=== PATIENT | male | born 1955 | race African-American/Black ===

== ENCOUNTER 2020-12-23 15:48 | Emergency (ER) | payer SELFPAY ==
[2020-12-23] MEDS ORDERED: NA CHLORIDE 0.9% 500 ML ONE (17:05)
[2020-12-23] MEDS ORDERED: FENTANYL CITR 100 MCG/2 ML ONE (17:05)
[2020-12-23 17:13] LABS: Absolute Lymphocytes (CBC) 1.3 K/uL (0.7-4.9); Basophils % 0.3 % (0-1.3); Hematocrit 39.7 % (39.6-49.0); Lymphocytes % 7.4 % (15.3-44.8); MPV 9.3 fL (7.6-11.3); RBC Red Blood Cell Count 4.04 M/uL (4.33-5.43)
[2020-12-23 17:26] LABS: Potassium 3.7 mmol/L (3.5-5.1)
--- NOTE | 2020-12-23 18:03 | RAD REPORT ---
EXAM DESCRIPTION: CT - Head C Spine Cap Wo Con - 12/23/2020 5:04 pm CLINICAL HISTORY: Trauma, head and neck injury. Chest, abdomen and pelvis pain. r/o trauma from fall COMPARISON: Shoulder Left 2 View dated 12/23/2020 TECHNIQUE: CT head without contrast. CT cervical spine without contrast with coronal and sagittal reformatted images. CT chest, abdomen and pelvis without contrast with coronal and sagittal reformatted images of the spi ne. All CT scans are performed using dose optimization technique as appropriate and may include automated exposure control or mA/KV adjustment according to patient size. FINDINGS: CT HEAD WITHOUT CONTRAST: No intracranial hemorrhage, hydrocephalus or extra-axial fluid collection. No areas of brain edema o r midline shift. The paranasal sinuses and mastoids are clear. The calvarium is intact. CT CERVICAL SPINE WITHOUT CONTRAST: There is a nondisplaced fracture involving the anterior inferior aspect of the C2 vertebral body. Sma ll bony fragment noted posterior to the left C2 lateral mass may also be avulsion fracture. Mildly di splaced fracture of the left C6 lateral mass is noted. CT CHEST, ABDOMEN, PELVIS WITHOUT CONTRAST: NOTE: Lack of contrast is a significant limitation in the assessment of trauma related findings. Spec ifically, solid organ, vascular and bowel evaluation is significantly limited. There is a moderately displaced fracture of the sternum at the level of the manubrium. Associated mil d volume of the anterior mediastinal hematoma. The left first, second, third ribs posteriorly. The right first, second, third and fourth ribs near t he junction with the spine appears fractured. The right third, fourth, fifth, sixth, seventh ribs aminata ear fractured posteriorly. Thoracic spine right transverse process fractures are seen involving T1, T2, T3, T4, T5, T6, T7, T8 a nd T9. Burst fracture is also noted involving the T4 and T5 vertebral bodies. Paraspinal hematoma is present at the level of the T4 and T5 burst fractures. There is mild probable canal compromise present at these levels. High density fluid is seen in the paraspinal posterior mediastinum most likely representing hemomedia stinum. There is fluid also noted in the anterior to the heart which is of high density and crescenti c measuring up to 25 mm likely hemopericardium. Assessment of the aorta and great vessels is limited due to lack of contrast. Grossly, the aorta appe ars of normal size. Mild high density fluid in the pleural spaces bilaterally likely mild hemothorax. No pneumothorax. Th e lungs are grossly clear. Within the limitations of noncontrast study, the solid organs appear unremarkable. No free fluid or b lood is seen in the abdomen or pelvis. IMPRESSION: Extensive acute traumatic findings are present as detailed above. Findings were discussed with Dr. Rose in the emergency room 5:55 p.m. 12/23/2020.
--- NOTE | 2020-12-23 18:04 | RAD REPORT ---
EXAM DESCRIPTION: RAD - Chest Single View - 12/23/2020 4:54 pm CLINICAL HISTORY: PAIN Chest pain. COMPARISON: No comparisons FINDINGS: Portable technique limits examination quality. The lungs are grossly clear. Cardiac silhouette is mildly enlarged. Posterosuperior fracture suspecte d.Please reference recent CT traumagram report.
--- NOTE | 2020-12-23 18:09 | RAD REPORT ---
EXAM DESCRIPTION: RAD - Shoulder Left 2 View - 12/23/2020 4:54 pm CLINICAL HISTORY: PAIN COMPARISON: No comparisons FINDINGS: Several left-sided rib fractures are present. The glenohumeral and AC joints appear intact . No scapular fracture evident.
--- NOTE | 2020-12-23 18:19 | ER ---
Nurse's Notes [facility] Name: Alexis Mcnamara Age: 65 yrs Sex: Male : 1955 Arrival Date: 12/23/2020 Time: 15:49 Bed 25 Private MD: Diagnosis: Contusion of heart with hemopericardium, initial encounter;Hematoma of Mediastinum;Unstable burst fracture of unspecified thoracic vertebra, initial encounter for closed fracture-T4 and T5;Fracture of sixth cervical vertebra;Other displaced fracture of first cervical vertebra, initial encounter for closed fracture;Multiple fractures of ribs-Left First thru Third, Right First thru Fourth near junction of spine and Fourth thru Seventh posteriorly;Unspecified fracture of sternum, initial encounter for closed fracture Presentation: 12/23 16:16 Chief complaint: Patient states: Fell off ladder at 6ft high around 1300. Pt stated, " kg Crushed my chest left side" Pt denies hitting head or LOC. Coronavirus screen: Client denies travel out of the [place] in the last 14 days. At this time, unable to obtain information related to travel outside the [place] At this time, the client does not indicate any symptoms associated with coronavirus-19. Ebola Screen: Patient negative for fever greater than or equal to 101.5 degrees Fahrenheit, and additional compatible Ebola Virus Disease symptoms Patient denies exposure to infectious person. Patient denies travel to an Ebola-affected area in the 21 days before illness onset. Initial Sepsis Screen: Does the patient meet any 2 criteria? No. Patient's initial sepsis screen is negative. Does the patient have a suspected source of infection? No. Patient's initial sepsis screen is negative. Risk Assessment: Do you want to hurt yourself or someone else? Patient reports no desire to harm self or others. Onset of symptoms was December 23, 2020. 16:16 Method Of Arrival: Wheelchair kg 16:16 Acuity: JEF 3 kg 16:30 Care prior to arrival: None. Mechanism of Injury: Fall from ladder approximately 6 ss feet. Trauma event details: Injury occurred in the [facility], Injury occurred: December 23, 2020. 17:31 Acuity: JEF 2 ss Triage Assessment: 16:21 General: Appears uncomfortable, Behavior is calm, cooperative, appropriate for age, kg quiet. Pain: Complains of pain in Left shoulder Pain radiates to Chest, Back Quality of pain is described as Soreness. Pain: Pain began 1300. Cardiovascular: Chest pain is aggravated by activity, is alleviated by position, rest. Injury Description: Deformity sustained to Left shoulder. Trauma Activation: Alert Physician: ED Physician; Name: ; Notified At: ; Arrived At: Physician: General Surgeon; Name: ; Notified At: ; Arrived At: Physician: Radiology; Name: ; Notified At: ; Arrived At: Physician: Respiratory; Name: ; Notified At: ; Arrived At: Physician: Lab; Name: ; Notified At: ; Arrived At: Historical: - Allergies: 16:21 No Known Allergies; kg - Home Meds: 16:21 None [Active]; kg - PMHx: 16:21 Hypertensive disorder; kg - PSHx: 16:21 None; kg - Immunization history:: Adult Immunizations up to date, Client reports receiving the 2nd dose of the Covid vaccine. - Social history:: Smoking status: Patient denies any tobacco usage or history of. Patient uses alcohol, weekly. - Immunization history: Last tetanus immunization: unknown. Screenin:25 Abuse screen: Denies threats or abuse. Denies injuries from another. Nutritional kg screening: No deficits noted. Tuberculosis screening: No symptoms or risk factors identified. Fall Risk None identified. Primary Survey: 16:27 NO uncontrolled hemorrhage observed. A: Airway: patent. Breathing/Chest: Respiratory kg pattern: regular. Circulation: Pulses: palpable right radial artery and left radial artery. Disability Alert. 16:32 Exposure/Environment: All clothing and personal items were removed. Forensic evidence ss collection is not deemed to be indicated at this time. Items placed in patient belonging bag. There is no evidence of uncontrolled external bleeding. Obvious injury(ies) are noted at this time: SEE INITIAL ASSESSMENT A warming method has been applied: A warm blanket has been provided to the patient. 17:30 Reassessment Airway Airway Patent Oxygen No O2 Oral cavity Clear Trachea Midline ss Breathing/Chest Respiratory pattern Regular Respiratory effort Spontaneous Unlabored Breath sounds Clear Chest inspection Symmetrical. Assessment: 16:30 Reassessment: C collar placed. ss 16:30 General: Behavior is calm, cooperative. Neuro: Level of Consciousness is awake, alert, ss obeys commands, Oriented to person, place, time, situation, Drying And Winding Supervisor are equal bilaterally. Respiratory: Trachea midline Respiratory effort is even, unlabored, Respiratory pattern is regular, symmetrical, Crepitus is absent. 16:32 General: Appears in no apparent distress. Behavior is calm, cooperative, Denies fever, ss feeling ill, fatigue, chills. Pain: Complains of pain in L side of chest, L shoulder, L scapula area. Pain currently is 5 out of 10 on a pain scale. Quality of pain is described as aching, tender, Pain began suddenly, Is continuous. Neuro: Level of Consciousness is awake, alert, obeys commands, Oriented to person, place, Drying And Winding Supervisor are equal bilaterally Full function Speech is normal, Facial symmetry appears normal, Pupils are PERRLA, Reports brief period of decreased sensation to L side shortly after fall, lasted only seconds. PT was able to ambulate after fall. . Denies blurred vision dizziness, numbness headache. EENT: Nares are clear Oral mucosa is moist. Throat is clear Denies blurred vision photophobia nasal discharge. Cardiovascular: Capillary refill < 3 seconds is brisk in bilateral fingers Patient's skin is warm and dry. Cardiovascular: Pulses are palpable in right radial artery, right posterior tibial artery, left radial artery and left posterior tibial artery. Respiratory: Airway is patent Respiratory effort is even, unlabored, Respiratory pattern is regular, symmetrical. Respiratory: Reports belching that began after fall. Trachea midline Breath sounds are clear bilaterally. GI: Patient currently denies diarrhea, nausea, vomiting. : No signs and/or symptoms were reported regarding the genitourinary system. Derm: Skin is intact, is healthy with good turgor, Skin is dry. Musculoskeletal: Circulation, motion, and sensation intact. Range of motion: limited in all extremities, Swelling absent. 16:50 Reassessment: Pt to CT now VIA stretcher. ss 17:00 Reassessment: Patient appears in no apparent distress at this time. Neuro: Denies ss weakness dizziness, paresthesias. Respiratory: Airway is patent Trachea midline Respiratory effort is even, unlabored, Respiratory pattern is regular, symmetrical, Breath sounds are clear bilaterally. Derm: Skin is pink, warm \\T\\ dry. normal. 17:30 Reassessment: Patient and/or family updated on plan of care and expected duration. Pain ss level reassessed. Patient is alert, oriented x 3, equal unlabored respirations, skin warm/dry/pink. General:. Neuro: Denies dizziness, paresthesias numbness. Respiratory: Respiratory effort is even, unlabored, Respiratory pattern is regular, symmetrical, Breath sounds are clear bilaterally. Denies cough, shortness of breath. Derm: Skin is intact, is healthy with good turgor, Skin is dry, Skin is pink, warm \\T\\ dry. normal. 17:56 Reassessment: Patient appears in no apparent distress at this time. Patient and/or ld1 family updated on plan of care and expected duration. Pain level reassessed. 18:15 Neuro: Level of Consciousness is awake, alert, Oriented to person, place, time, ss situation, Drying And Winding Supervisor are equal bilaterally Speech is normal, Facial symmetry appears normal. Respiratory: Airway is patent Respiratory effort is even, unlabored, Respiratory pattern is regular, symmetrical, Breath sounds are clear bilaterally. Crepitus is absent. 18:32 Reassessment: Patient appears in no apparent distress at this time. Patient and/or ld1 family updated on plan of care and expected duration. Pain level reassessed. Pt laying in bed with at bedside. 18:46 Reassessment: Report given to NADEEM Vo at [facility] ER. [facility] here. Care handed over to [facility]. Vital Signs: 16:16 Pulse 92; Resp 20; Temp 98.7(O); Pulse Ox 97% on R/A; Weight 87.09 kg (R); Height 6 ft. kg 2 in. (187.96 cm); Pain 5/10; 17:56 BP 153 / 102; Pulse 102; Resp 18; Pulse Ox 100% on R/A; ld1 18:32 BP 125 / 92; Pulse 104; Resp 22; Pulse Ox 98% on R/A; ld1 18:32 Pain 2/10; ss 16:16 Body Mass Index 24.65 (87.09 kg, 187.96 cm) kg Reema Coma Score: 16:30 Eye Response: spontaneous(4). Verbal Response: oriented(5). Motor Response: obeys ss commands(6). Total: 15. 16:40 Eye Response: spontaneous(4). Verbal Response: oriented(5). Motor Response: obeys cp commands(6). Total: 15. 17:30 Eye Response: spontaneous(4). Verbal Response: oriented(5). Motor Response: obeys ss commands(6). Total: 15. 17:56 Eye Response: spontaneous(4). Verbal Response: oriented(5). Motor Response: obeys ld1 commands(6). Total: 15. 18:32 Eye Response: spontaneous(4). Verbal Response: oriented(5). Motor Response: obeys ld1 commands(6). Total: 15. Trauma Score (Adult): 16:30 Eye Response: spontaneous(1); Verbal Response: oriented(1); Motor Response: obeys ss commands(2); Systolic BP: > 89 mm Hg(4); Respiratory Rate: 10 to 29 per min(4); [place] Score: 15; Trauma Score: 12 17:30 Eye Response: spontaneous(1); Verbal Response: oriented(1); Motor Response: obeys ss commands(2); Systolic BP: > 89 mm Hg(4); Respiratory Rate: 10 to 29 per min(4); [place] Score: 15; Trauma Score: 12 ED Course: 15:49 Patient arrived in ED. as 16:21 Triage completed. kg 16:25 Patient has correct armband on for positive identification. kg 16:30 Arm band placed on right wrist. C-collar applied. ss 16:30 monitoring coordinator on. Pulse ox on. NIBP on. Noise minimized. Warm blanket given. ss 16:30 Thermoregulation: warm blanket given to patient. ss 16:32 Thermoregulation: warm blanket given to patient. ss 16:37 Inserted saline lock: 20 gauge in right antecubital area, using aseptic technique. ss Blood collected. Patient maintains SpO2 saturation greater than 95% on room air. 16:39 Luis A Jo PA is PHCP. cp 16:39 Giuliano Rose MD is Attending Physician. cp 16:54 XRAY Chest (1 view) In Process Unspecified. EDMS 16:54 Shoulder Left (2 View) XRAY In Process Unspecified. EDMS 17:03 Head C Spine Cap Wo Con In Process Unspecified. EDMS 17:47 Swati Castelan, NADEEM is Primary Nurse. ss 18:12 initiated transfer to [facility], pt was denied due to [facility] being on trauma divert, per bd Love. 18:13 initiated transfer to [facility]. bd 19:06 No provider procedures requiring assistance completed. Patient transferred, IV remains ss in place. Administered Medications: 16:50 Drug: fentaNYL (PF) 25 mcg Route: IVP; Site: right antecubital; ss 17:47 Follow up: Response: No adverse reaction; Pain is decreased ss 16:50 Drug: NS 0.9% 500 ml Route: IV; Rate: bolus; Site: right antecubital; ss 18:11 Follow up: IV Status: Completed infusion; IV Intake: 500ml ss 18:16 CANCELLED (Physician Discretion): NS 0.9% 1000 ml IV at 1 bolus Per protocol; 1000 mL cp bolus Intake: 18:11 IV: 500ml; Total: 500ml. ss 19:07 IV: 500ml (IV Fluid); Total: 1000ml. ss Output: 19:07 Urine: 0ml; Total: 0ml. ss Outcome: 18:15 ER care complete, transfer ordered by MD. cp 19:06 Transferred by helicopter ss 19:06 Condition: stable 19:06 Instructed on the need for transfer. 19:07 Patient's length of stay was not longer than 2 hours. ss 19:09 Patient left the ED. ss Signatures: Dispatcher [employer] EDMS Sheron Martinez, Swati Barboza RN RN ss Luis A Jo PA PA cp Lindy Carvajal RN RN ld1 Elen Stafford RN RN kg Corrections: (The following items were deleted from the chart) 17:56 17:56 Reassessment: No changes from previously documented assessment. Patient is ld1 alert/active/playful, equal unlabored respirations, skin warm/dry/pink. ld1
--- NOTE | 2020-12-23 18:19 | EDPHYS ---
Physician Documentation [facility] Name: Alexis Mcnamara Age: 65 yrs Sex: Male : 1955 Arrival Date: 12/23/2020 Time: 15:49 Bed 25 Private MD: ED Physician Giuliano Rose HPI: 12/23 16:30 This 65 yrs old Black Male presents to ER via Wheelchair with complaints of Fall cp Injury, Shoulder Pain, Chest Pain From Injury. 16:30 Details of fall: The patient fell from a height, from a ladder, approximately 6 feet, cp and struck dirt. 16:30 Onset: The symptoms/episode began/occurred just prior to arrival. Associated injuries: cp The patient sustained injury to the head, neck injury, pain, upper back injury, pain, tenderness, left shoulder. Historical: - Allergies: 16:21 No Known Allergies; kg - Home Meds: 16:21 None [Active]; kg - PMHx: 16:21 Hypertensive disorder; kg - PSHx: 16:21 None; kg - Immunization history:: Adult Immunizations up to date, Client reports receiving the 2nd dose of the Covid vaccine. - Social history:: Smoking status: Patient denies any tobacco usage or history of. Patient uses alcohol, weekly. - Immunization history: Last tetanus immunization: unknown. ROS: 16:35 Constitutional: Negative for body aches, chills, fever, poor PO intake. cp 16:35 Eyes: Negative for injury, pain, redness, and discharge. cp 16:35 Neck: Positive for pain with movement. 16:35 Cardiovascular: Positive for chest pain, of the sternal, Negative for edema, palpitations. 16:35 Respiratory: Negative for cough, shortness of breath, wheezing. 16:35 Abdomen/GI: Negative for abdominal pain, nausea, vomiting, and diarrhea. 16:35 Back: Positive for pain at rest, pain with movement, of the left trapezius and left scapular area. 16:35 MS/extremity: Negative for decreased range of motion, deformity. 16:35 Neuro: Negative for altered mental status, loss of consciousness, syncope, weakness. 16:35 All other systems are negative. Exam: 16:40 Constitutional: The patient appears in no acute distress, alert, awake, cp non-diaphoretic, non-toxic, well developed, well nourished. 16:40 Head/Face: Normocephalic, atraumatic. cp 16:40 Eyes: Periorbital structures: appear normal, Pupils: equal, round, and reactive to light and accomodation, Extraocular movements: intact throughout, Conjunctiva: normal, no exudate, no injection, Sclera: no appreciated abnormality, Lids and lashes: appear normal, bilaterally. 16:40 ENT: External ear(s): are unremarkable, Nose: is normal, Mouth: Lips: moist, Oral mucosa: moist, Posterior pharynx: Airway: no evidence of obstruction, patent. 16:40 Neck: C-spine: C-collar placed in ED. 16:40 Chest/axilla: Inspection: normal, Palpation: is normal, no crepitus, no tenderness. 16:40 Cardiovascular: Rate: normal, Rhythm: regular, Pulses: Pulses are 2+ in right radial artery, right dorsalis pedis artery, left radial artery and left dorsalis pedis artery. Edema: is not appreciated, JVD: is not appreciated. 16:40 Respiratory: the patient does not display signs of respiratory distress, Respirations: normal, no use of accessory muscles, no retractions, labored breathing, is not present, Breath sounds: are clear throughout, no decreased breath sounds, no stridor, no wheezing. 16:40 Abdomen/GI: Inspection: abdomen appears normal, Bowel sounds: active, all quadrants, Palpation: abdomen is soft and non-tender, in all quadrants. 16:40 Back: pain, that is moderate, of the left trapezius and left scapular area, ROM is painful, Straight leg raises: of both lower extremities does not illicit pain. 16:40 Musculoskeletal/extremity: Exam is negative for decreased range of motion, deformity, Extremities: 16:40 Neuro: Orientation: to person, place \T\ time. Mentation: is normal, Motor: moves all fours, strength is normal, Sensation: is normal. 18:25 ECG was reviewed by the Attending Physician. cp Vital Signs: 16:16 Pulse 92; Resp 20; Temp 98.7(O); Pulse Ox 97% on R/A; Weight 87.09 kg (R); Height 6 ft. kg 2 in. (187.96 cm); Pain 5/10; 17:56 BP 153 / 102; Pulse 102; Resp 18; Pulse Ox 100% on R/A; ld1 18:32 BP 125 / 92; Pulse 104; Resp 22; Pulse Ox 98% on R/A; ld1 18:32 Pain 2/10; ss 16:16 Body Mass Index 24.65 (87.09 kg, 187.96 cm) kg Brooklyn Coma Score: 16:30 Eye Response: spontaneous(4). Verbal Response: oriented(5). Motor Response: obeys ss commands(6). Total: 15. 16:40 Eye Response: spontaneous(4). Verbal Response: oriented(5). Motor Response: obeys cp commands(6). Total: 15. 17:30 Eye Response: spontaneous(4). Verbal Response: oriented(5). Motor Response: obeys ss commands(6). Total: 15. 17:56 Eye Response: spontaneous(4). Verbal Response: oriented(5). Motor Response: obeys ld1 commands(6). Total: 15. 18:32 Eye Response: spontaneous(4). Verbal Response: oriented(5). Motor Response: obeys ld1 commands(6). Total: 15. Trauma Score (Adult): 16:30 Eye Response: spontaneous(1); Verbal Response: oriented(1); Motor Response: obeys ss commands(2); Systolic BP: > 89 mm Hg(4); Respiratory Rate: 10 to 29 per min(4); [place] Score: 15; Trauma Score: 12 17:30 Eye Response: spontaneous(1); Verbal Response: oriented(1); Motor Response: obeys ss commands(2); Systolic BP: > 89 mm Hg(4); Respiratory Rate: 10 to 29 per min(4); Reema Score: 15; Trauma Score: 12 MDM: 16:41 Patient medically screened. cp 18:24 Differential diagnosis: closed head injury, contusion, fracture. Data reviewed: vital rn signs, nurses notes, radiologic studies, CT scan, and as a result, I will admit patient. Response to treatment: the patient's symptoms have markedly improved after treatment, and as a result, I will admit patient. Admission orders: after a detailed discussion of the patient's condition and case, the admit orders are written by me. ED course: [place] trauma at trauma diversion. Called [facility], consulted with Dr. Roach at [facility], accepted patient for trauma transfer, will [facility] patient given extent of injuries, namely paraspinal hematoma, mediastinal hematoma and hemopericardium.. 12/23 16:41 Order name: Type And Screen cp 12/23 17:06 Order name: Basic Metabolic Panel; Complete Time: 17:52 EDMS 12/23 17:52 Interpretation: Normal except: GLUC 154; BUN 23; CRE 1.60; GFR 53. cp 12/23 17:06 Order name: CBC with Automated Diff; Complete Time: 17:52 EDMS 12/23 17:52 Interpretation: Normal except: WBC 18.00; RBC 4.04; HGB 13.0; DENNY% 86.4; LYM% 7.4; NEUT cp A 15.6. 12/23 17:56 Order name: Troponin I cp 12/23 16:25 Order name: XRAY Chest (1 view) kg 12/23 16:25 Order name: Shoulder Left (2 View) XRAY kg 12/23 17:01 Order name: Head C Spine Cap Wo Con EDMS 12/23 16:41 Order name: Labs collected and sent; Complete Time: 16:41 cp 12/23 17:56 Order name: EKG; Complete Time: 17:58 cp 12/23 17:56 Order name: EKG - Nurse/Tech; Complete Time: 19:09 cp EC:25 Rate is 105 beats/min. Rhythm is regular. VT interval is normal. QRS interval is cp normal. QT interval is normal. T waves are Inverted in lead aVR. Interpreted by me. Reviewed by me. Administered Medications: 16:50 Drug: fentaNYL (PF) 25 mcg Route: IVP; Site: right antecubital; ss 17:47 Follow up: Response: No adverse reaction; Pain is decreased ss 16:50 Drug: NS 0.9% 500 ml Route: IV; Rate: bolus; Site: right antecubital; ss 18:11 Follow up: IV Status: Completed infusion; IV Intake: 500ml ss 18:16 CANCELLED (Physician Discretion): NS 0.9% 1000 ml IV at 1 bolus Per protocol; 1000 mL cp bolus Disposition: 18:02 Co-signature as Attending Physician, Giuliano Rose MD I agree with the assessment and rn plan of care. PA/RAILCAR FOREMAN's history reviewed, patient interviewed, and examined. HPI: Old male fall off of a ladder while cutting a tree limb landed on chest and left shoulder, no anticoagulation, no LOC My personal exam of patient reveals: Positive tenderness anterior chest wall without any crepitus or palpable hematoma, positive painful range of motion left shoulder without gross deformity. Mild tenderness cervical and thoracic spine without step-off. No focal abdominal tenderness or swelling. No evidence of retroperitoneal hematoma I agree with assessment and care plan and confirm the diagnosis (es) above. Disposition Summary: 12/23/20 18:15 Transfer Ordered Transfer Location: [facility] cp Reason: Higher level of care cp Condition: Stable cp Problem: new cp Symptoms: have improved cp Accepting Physician: DR Thomas Roach(12/23/20 19:09) ss Diagnosis - Contusion of heart with hemopericardium, initial encounter cp - Hematoma of Mediastinum cp - Unstable burst fracture of unspecified thoracic vertebra, initial encounter for cp closed fracture - T4 and T5 - Fracture of sixth cervical vertebra cp - Other displaced fracture of first cervical vertebra, initial encounter for closed cp fracture - Multiple fractures of ribs - Left First thru Third, Right First thru Fourth near cp junction of spine and Fourth thru Seventh posteriorly - Unspecified fracture of sternum, initial encounter for closed fracture cp Forms: - Medication Reconciliation Form cp - SBAR form cp Critical care time excluding procedures: 18:27 Critical care time: Bedside Care: 25 minutes, Consultation: 5 minutes. Total time: 30 rn minutes Signatures: Dispatcher [employer] EDME Sheron Martinez Roman, MD MD rn Smirch, Shelby, RN RN ss Page, Corey, PA PA cp Elen Stafford, NADEEM RN kg Corrections: (The following items were deleted from the chart) 17:01 16:55 Head C Spine Cap W Con ordered. EDME EDMS 17:09 16:30 Details of fall: The patient fell from a height, from a ladder, approximately 8 cp feet, cp 18:01 17:57 Head C Spine CAP W Con+CT.RAD.BRZ ordered. EDME EDMS 18:16 18:16 NS 0.9% 1000 ml IV at 1 bolus Per protocol; 1000 mL bolus ordered. cp cp 18:21 18:15 Doctor cp cp 18:31 18:21 Doctor cp cp 18:43 18:31 Doctor cp cp 18:46 17:57 CBC+H.LAB.BRZ ordered. EDMS EDMS 18:59 17:57 BASIC METABOLIC PANEL+C.LAB.BRZ ordered. EDMS EDMS 19:09 18:43 DR Thomas Roach cp ss
[2020-12-25 01:35] VITALS: TEMP 98.7
[2020-12-25 01:39] VITALS: BP 125/92; O2SAT 98
--- NOTE | 2020-12-25 07:33 | EKG ---
Test Date: 2020-12-23 Test Time: 18:20:05 Plastics Supervisor: ALFRED MEASUREMENT RESULTS: Intervals: Rate: 105 MT: 134 QRSD: 84 QT: 342 QTc: 452 Waterman: P: 72 MT: 134 QRS: -72 T: 57 INTERPRETIVE STATEMENTS: Sinus tachycardia Left anterior fascicular block Abnormal ECG No previous ECG available for comparison Electronically Signed On 12-25-20 07:28:54 CDT by J Luis Breaux
== END 2020-12-23 19:09 | disposition short-term general hospital (02) ==
LOC: ER 15:48
DX: S26.01 Contusion of heart with hemopericardium (principal); S27.892A Contusion of other specified intrathoracic organs, initial encounter; S22.041A Stable burst fracture of fourth thoracic vertebra, initial encounter for closed fracture; S22.051A Stable burst fracture of T5-T6 vertebra, initial encounter for closed fracture; S12.500A Unspecified displaced fracture of sixth cervical vertebra, initial encounter for closed fracture; S12.000A Unspecified displaced fracture of first cervical vertebra, initial encounter for closed fracture; S22.43XA Multiple fractures of ribs, bilateral, initial encounter for closed fracture; S22.20XA Unspecified fracture of sternum, initial encounter for closed fracture; W11.XXXA Fall on and from ladder, initial encounter; I10 Essential (primary) hypertension
CPT/HCPCS: 36415; 70450; 71045; 71250; 72125; 80048; 82565; 84484; 85025; 86850; 86900; 86901; 93005; 96361; 96374; 99285; G0390; J3010; J7040